=== PATIENT | female | born 1995 | race Caucasian/White ===

== ENCOUNTER 2022-11-21 21:19 | Emergency (ER) | payer MEDICAID ==
[~2022-11-21] VITALS: Ht 157.5 cm; Wt 84.4 kg
[2022-11-21 21:30] VITALS: BP 127/92
--- NOTE | 2022-11-21 21:33 | NUR ---
TO LOBBY A/W BED AMBULATORY
[2022-11-22 00:30] VITALS: BP 127/92
--- NOTE | 2022-11-22 00:30 | NUR ---
Patient discharged with v/s stable. Written and verbal after care instructions given and explained. Patient verbalized understanding. Ambulatory with steady gait. All questions addressed prior to discharge. Advised to follow up with PMD.
== END 2022-11-22 00:30 | disposition home or self-care (01) ==
LOC: MED 21:19
DX: F41.9 Anxiety disorder, unspecified (principal)
CPT/HCPCS: 99281